=== PATIENT | female | born 1990 | race Caucasian/White ===

== ENCOUNTER 2017-03-14 12:44 | Emergency (ER) | payer MEDICAID ==
[~2017-03-14] VITALS: Ht 162.6 cm; Wt 69.0 kg
[2017-03-14] MEDS ORDERED: ONDANSETRON 4MG ODT PO STA (14:32)
[2017-03-14 14:45] LABS: CLARITY URINE CLOUDY (CLEAR); COLOR URINE YELLOW (YELLOW); KETONES URINE TRACE (NEGATIVE); LEUKOCYTE ESTERASE URINE 2+ (NEGATIVE); NITRITE URINE NEGATIVE (NEGATIVE); OCCULT BLOOD URINE NEGATIVE (NEGATIVE); PH URINE 8.5 (4.5-8.0); PROTEIN URINE NEGATIVE (NEGATIVE)
[2017-03-14 15:38] LABS: BASOPHILS % 0.4 % (0.0-2.0); EOSINOPHILS % 0.5 % (0.0-5.0); HEMATOCRIT. 36.9 % (36.0-48.0); HEMOGLOBIN. 12.9 g/dL (12.0-16.0); LYMPHOCYTES % 16.5 % (20.0-50.0); MEAN CORPUSCULAR HEMOGLOBIN 31.6 pg (28.0-32.0); MEAN CORPUSCULAR VOLUME 90.5 fL (81.0-99.0); MEAN PLATELET VOLUME 10.3 fl (7.4-10.4); MONOCYTES % 5.1 % (2.0-8.0); NEUTROPHILS % 77.5 % (40.0-76.0); PLATELET 163 x1000/uL (130-400); RED BLOOD CELL COUNT 4.08 mill/uL (4.2-5.4); RED CELL DISTRIBUTION WIDTH 12.4 % (11.6-14.6)
[2017-03-14 15:43] LABS: INR 1.1; PROTHROMBIN TIME 11.3 sec (9.4-11.6)
[2017-03-14 15:47] LABS: HCG SCREEN POSITIVE
[2017-03-14 15:56] LABS: CARBON DIOXIDE 28 mEq/L (21-32); CHLORIDE 102 mEq/L (98-107)
[2017-03-14 16:05] LABS: B-HCG QUANTITATIVE 92762 mIU/mL (<3)
[2017-03-14 16:16] VITALS: BP 114/71
== END 2017-03-14 16:25 | disposition home or self-care (01) ==
LOC: ER 13:33
DX: O26.891 Other specified pregnancy related conditions, first trimester (principal); Z3A.08 8 weeks gestation of pregnancy; R06.02 Shortness of breath; R10.13 Epigastric pain; R53.1 Weakness
CPT/HCPCS: 36415; 71045; 76801; 76817; 80053; 81001; 84702; 84703; 85025; 85610; 99285; Q0162

== ENCOUNTER 2017-04-05 08:30 | Emergency (ER) | payer MEDICAID ==
[~2017-04-05] VITALS: Ht 162.6 cm; Wt 70.0 kg
[2017-04-05] MEDS ORDERED: SODIUM CHLORIDE 0.9% 1,000 ML IV ONE (09:35)
[2017-04-05 10:04] LABS: CLARITY URINE TURBID (CLEAR); COLOR URINE YELLOW (YELLOW); KETONES URINE NEGATIVE (NEGATIVE); LEUKOCYTE ESTERASE URINE TRACE (NEGATIVE); NITRITE URINE NEGATIVE (NEGATIVE); OCCULT BLOOD URINE NEGATIVE (NEGATIVE); PROTEIN URINE NEGATIVE (NEGATIVE); SPECIFIC GRAVITY URINE 1.024 (1.005-1.030); UROBILINOGEN URINE 0.2 E.U./dL (0.2-1.0)
[2017-04-05 11:27] LABS: BASOPHILS % 0.4 % (0.0-2.0); EOSINOPHILS % 0.9 % (0.0-5.0); HEMATOCRIT. 34.8 % (36.0-48.0); HEMOGLOBIN. 11.9 g/dL (12.0-16.0); LYMPHOCYTES % 15.7 % (20.0-50.0); MEAN CORPUSCULAR HEMOGLOBIN 30.9 pg (28.0-32.0); MEAN CORPUSCULAR VOLUME 90.4 fL (81.0-99.0); MEAN PLATELET VOLUME 10.1 fl (7.4-10.4); MONOCYTES % 6.3 % (2.0-8.0); NEUTROPHILS % 76.7 % (40.0-76.0); PLATELET 154 x1000/uL (130-400); RED BLOOD CELL COUNT 3.85 mill/uL (4.2-5.4); RED CELL DISTRIBUTION WIDTH 12.7 % (11.6-14.6)
[2017-04-05] MEDS ORDERED: CEFAZOLIN 1000MG PREMIX 50 ML IV ONE (11:30)
[2017-04-05 11:46] LABS: CHLORIDE 108 mEq/L (98-107)
[2017-04-05 11:53] LABS: B-HCG QUANTITATIVE 78359 mIU/mL (<3)
[2017-04-05 13:17] VITALS: BP 100/58
== END 2017-04-05 13:19 | disposition home or self-care (01) ==
LOC: ER 08:36
DX: O20.0 Threatened abortion (principal); O26.891 Other specified pregnancy related conditions, first trimester; Z3A.11 11 weeks gestation of pregnancy; O23.41 Unspecified infection of urinary tract in pregnancy, first trimester; R51 Headache
CPT/HCPCS: 36415; 76801; 76817; 80048; 81001; 81025; 84702; 85025; 86850; 86900; 86901; 96361; 96365; 99285; J0690; J7030; Z7610